=== PATIENT | female | born 1975 | race Caucasian/White ===

== ENCOUNTER 2017-12-12 10:51 | Outpatient (CLI) | payer OTHER | END 2017-12-12 10:52 | disposition home or self-care (01) | LOC: BICMAMMO 10:51 | PROVIDERS: ATTEND Orthopaedic Surgery | DX: Z12.31 Encounter for screening mammogram for malignant neoplasm of breast (principal); Z80.3 Family history of malignant neoplasm of breast | CPT/HCPCS: 77067 ==

== ENCOUNTER 2018-06-05 16:30 | Inpatient (IN) | payer OTHER ==
[2018-06-05 17:22] VITALS: BMI 33.4
[2018-06-08] MEDS ORDERED: Gabapentin 300 MG CAP ONE (06:52)
[2018-06-08] MEDS ORDERED: CeleCOXIB 100 MG CAP ONE (06:52)
[2018-06-08] MEDS ORDERED: Famotidine/PF 20 mg/2ml Vial ONE (06:53)
[2018-06-08] MEDS ORDERED: CEFAZOLIN/Water 2 GM/20 ML SYRINGE ONE (06:53)
[2018-06-08] MEDS ORDERED: Bupivacaine HCl 0.5%/Epinephrine 1:200,000/PF 30 ml Vial ONE (06:56)
[2018-06-08] MEDS ORDERED: Lidocaine 1% w/Epinephrine 1:100K 30 ML VIAL ONE (06:56)
[2018-06-08] MEDS ORDERED: Midazolam HCl 2 mg/2 ml Vial ONE (07:14)
[2018-06-08] MEDS ORDERED: Fentanyl 100 MCG/2 ML VIAL ONE ×2 (07:19→11:50)
[2018-06-08] MEDS ORDERED: SUGAMMADEX SODIUM 200 MG/2 ML VIAL ONE (07:19)
[2018-06-08] MEDS ORDERED: Ropivacaine HCl/PF 750 ML in Premix Bag 1 BAG NERVE BLCK SCH (08:00)
[2018-06-08] MEDS ORDERED: Promethazine HCl 25 MG/ML VIAL SLOW IVP PRN (08:18)
[2018-06-08] MEDS ORDERED: Promethazine HCl 25 MG/ML VIAL IM PRN ×2 (08:18→10:07)
[2018-06-08] MEDS ORDERED: Ondansetron HCl/PF 4 MG/2 ML Vial IVP PRN ×2 (08:18→10:07)
[2018-06-08] MEDS ORDERED: Bisacodyl 10 MG SUPP PR PRN (10:07)
[2018-06-08] MEDS ORDERED: HYDROcodone/Acetaminophen 5/325 mg Tablet PO PRN ×2 (10:07)
[2018-06-08] MEDS ORDERED: Acetaminophen 325 MG TAB PO PRN (10:07)
[2018-06-08] MEDS ORDERED: Lactated Ringer's 1,000 ML IV SCH (10:15)
[2018-06-08] MEDS ORDERED: Morphine 4 MG/ML VIAL SLOW IVP PRN (10:15)
--- NOTE | 2018-06-08 11:14 | OP ---
DATE OF PROCEDURE: 06/08/2018 PREOPERATIVE DIAGNOSES: 1. Chronic pelvic pain. 2. Dysmenorrhea. 3. Concern for adenomyosis. 4. Apical vaginal prolapse with a grade I-II cystocele. POSTOPERATIVE DIAGNOSES: 1. Chronic pelvic pain. 2. Dysmenorrhea. 3. Concern for adenomyosis. 4. Apical vaginal prolapse with a grade I-II cystocele. PROCEDURE: 1. Robotic assisted total laparoscopic hysterectomy. 2. Bilateral salpingectomy. 3. A uterosacral ligament suspension. 4. Cystoscopy. SURGEON Madhavi Aguirre D.O. SENIOR DATA SCIENTIST: Nadine Jiménez M.D. ESTIMATED BLOOD LOSS: 100 mL. IV FLUIDS: 900 mL. URINARY OUTPUT: 400 mL. IV FLUIDS: 1400 mL. FINDINGS: Normal external genitalia, normal vaginal and cervical epithelium. A 9 cm uterus with a g rade I to II apical and anterior prolapse. Evidence of prior tubal ligation with Falope ring found i n the right fallopian tube, normal appearing ovaries with a simple cyst on the right ovary. INDICATIONS FOR THE PROCEDURE: Ms. Bekah Baez is a 43-year-old G4, P4 who presented with clinic wit h history of chronic pelvic pain, dysmenorrhea. The patient had a sonogram which demonstrated possib le adenomyosis. She had undergone medical therapy with oral contraceptives and failed therapy due to worsening migraines. The patient was counseled on options and strongly desired definitive surgical treatment for her dysmenorrhea, understanding that it may not alleviate all of her chronic pelvic dorina n. The patient also had symptomatic cystocele and apical prolapse and preferred to have a suspension procedure as well at the time of hysterectomy. PROCEDURE IN DETAIL: The patient was brought to the operating room and she was placed under general anesthesia. The patient was placed in dorsal lithotomy position using Jayden stirrups. She was appro priately positioned with her arms tucked for robotic surgery. She was prepped and draped in a steril e fashion. She was given Ancef 2 grams for preoperative prophylaxis. An official timeout was perfor med. Speculum was placed in the vagina. The cervix was grasped using single tooth tenaculum. Cervi x was sequentially dilated and sounded to approximately 9 cm. CASSIA manipulator cup was appropriately secured to the ectocervix and everything else was removed from the vagina. Gloves were exchanged. Attention was turned to the abdominal portion. A supraumbilical incision was made using the scalpel. The Veress needle was inserted into the abdominal cavity noting a normal pressure and the abdomen w as insufflated using carbon dioxide. A 12 mm trocar was then placed at this point and the pelvis was evaluated, noting the findings above. The patient was placed in Trendelenburg position. Additional economist research assistant ports were placed with two robotic 8 mm ports on the right and left aspect of the abdomen and an additional 11 mm port on the right aspect, all were placed using local anesthesia under direct visualization. The robot was appropriately docked to the patient. Instruments were inserted. Hyst erotomy was performed on the left aspect where the left fallopian tube was removed using sharp dissec tion. This was removed intact. The left round ligament was then coagulated multiple times and trans ected. The left uteroovarian ligament was coagulated multiple times and transected. This allowed en trance into the broad ligament. The posterior leaf of the broad ligament was undermined and transect ed down towards the level of uterosacral ligaments and the same was performed anteriorly to allow for inferior reflection of the bladder. At the beginning of the case, prior to starting hysterectomy th e uterosacral ligaments were identified and a releasing incision was made on the lateral aspect of th e uterosacral ligament to allow for the ureter to fall even more laterally and the ureters were ident ified throughout their full course. The left uterine vessels were then coagulated multiple times. A ttention was turned to the right aspect of the uterus. The right fallopian tube was removed using sh fabiola dissection noting a Falope ring within the right fallopian tube. The right round ligament was co agulated multiple times and transected. Anterior leaf of the broad ligament was undermined and trans ected allowing for inferior flexion of the bladder. The right uteroovarian ligament was coagulated m ultiple times and transected. The posterior aspect of the right broad ligament was then undermined a nd transected down to the level of the uterosacral ligaments. The right uterine vessels were coagula rachel multiple times and did require additional coagulation due to bleeding initially. The hemostasis was then achieved. The right uterine vessels were transected. The colpotomy was performed in a circ umferential fashion removing the cervix from the vaginal epithelium and the uterus and cervix were de livered in the vagina and all portions of the CASSIA manipulator were also removed. The pelvis was irr igated and cleared of all clot and debris. There were some areas along the vaginal cuff that require d additional cautery on the posterior aspect. The cuff was then closed in a running fashion using 0 Stratafix suture. The needle was then removed. The uterosacral ligament suspension was then perform ed bilaterally using Ethibond suture. The more proximal portion of the uterosacral ligament was then elevated and an Ethibond suture was applied at this portion. The distal portion was then taken with in the suture approximately 1 cm from the vaginal cuff. The suture was then passed from the posterio r to anterior aspect of the vaginal cuff and then again posteriorly to anteriorly and this suture was secured. This was performed bilaterally again noting the full course of the ureter during this proc ess. The pelvis was then again irrigated and cleared of all clot and debris. The ON-Q pump was then placed within the abdomen and secured. The instruments were then removed. The robot was undocked f rom the patient. The abdomen was deflated. The trocars were removed. The 12 mm site was closed, cl osing the deep tissue of the site and the skin incision was closed using 4-0 Monocryl and Dermabond. Attention was turned to the vaginal portion, the cystocele and apical prolapse were well reduced usi ng the technique of the uterosacral ligament suspension. Therefore, she no longer required an anteri or repair. The Andersen was removed and a cystoscopy was performed noting a normal bladder mucosa and b ilateral ureteral efflux. The Andersen was then replaced. The patient was then placed back in supine p osition. She was extubated without difficulty. All counts were correct x2. There were no complicat ions. The patient transferred to PACU in hemodynamically stable condition.
[2018-06-08] MEDS ORDERED: Dexamethasone 20 MG/5 ML VIAL ONE (12:28)
[2018-06-08] MEDS ORDERED: PROPOFOL 200 MG/20 ML VIAL ONE (12:28)
[2018-06-08] MEDS ORDERED: Ondansetron HCl/PF 4 MG/2 ML Vial ONE (12:28)
[2018-06-08] MEDS ORDERED: Glycopyrrolate 0.2 MG/ML 5 ML SYRINGE ONE (12:28)
[2018-06-08] MEDS: Ibuprofen 800 MG TAB PO SCH ×2 (13:33→21:30)
[2018-06-08] MEDS ORDERED: Morphine 10 MG/ML VIAL SLOW IVP PRN (15:30)
[2018-06-08] MEDS ORDERED: Nortriptyline HCl 25 MG CAP PO SCH (21:00)
[2018-06-09 06:03] LABS: #Lymphocytes 1.2 thou/uL (1.20-3.40); #Monocytes 0.9 thou/uL (0.11-0.59); #Neutrophils 10.3 thou/uL (1.40-6.50); %Basophils 0.3 % (0.0-1.0); %Eosinophils 0.3 % (0.0-10.0); %Lymphocytes 9.8 % (21.0-51.0); %Monocytes 7.1 % (0.0-10.0); %Neutrophils 82.6 % (42.0-75.0); Hemoglobin 11.9 g/dL (12.0-16.0); Mean Corpuscular HGB CONC 33.2 g/dL (32.0-36.0); Mean Corpuscular Hemoglobin 31.2 pg (27.0-31.0); Mean Corpuscular Volume 93.8 fL (78.0-98.0); Mean Platelet Volume 6.9 fL (7.4-10.4); Platelet Count 235 thou/uL (130-400); Red Blood Cell (RBC) Count 3.82 mill/uL (4.20-5.40); White Blood Cell (WBC) Count 12.4 thou/uL (4.8-10.8)
[2018-06-09] MEDS: Ibuprofen 800 MG TAB PO SCH (06:10)
[2018-06-09 06:16] LABS: Anion Gap 10 mmol/L (10-20); BUN (Urea Nitrogen) 6 mg/dL (7.0-18.7); Calc. Creatinine Clearance 145 mL/min (70-130); Calcium 8.7 mg/dL (7.8-10.44); Carbon Dioxide 25 mmol/L (22-29); Chloride 108 mmol/L (98-107); Estimated GFR-MDRD 85; Glucose 107 mg/dL (70-105); Potassium 3.6 mmol/L (3.5-5.1); Sodium 139 mmol/L (136-145)
[2018-06-09 08:43] VITALS: BP 117/67; TEMP 99.1
[2018-06-09] MEDS ORDERED: Milk Of Magnesia 30 ML UDCUP PO SCH (09:00)
--- NOTE | 2018-06-09 10:24 | PRG ---
DATE OF SERVICE: 06/09/2018 HPI: Postoperative day #1, status post robotic assisted total laparoscopic hysterectomy with a bilateral salpingectomy and uterosacral ligament suspension and cystoscopy. SUBJECTIVE: The patient reports mild pain controlled with ON-Q pain pump and oral medications. Denies any vaginal bleeding. She was voiding and ambulating without difficulty. She has not yet passed flatus. Denies any nausea, vomiting , fevers or chills. OBJECTIVE: VITAL SIGNS: Stable. CARDIOVASCULAR: Regular rate and rhythm. RESPIRATORY: Unlabored breathing. ABDOMEN: Soft, mild distention. Incisions clean, dry, and intact. Quiet bowel sounds in all 4 quadrants. ON-Q pump appropriately secured, and mild tenderness to palpation, as expected postoperatively. EXTREMITIES: No edema. Negative Homans'. LABORATORY: Stable with slight anemia as expected postoperatively. ASSESSMENT: Postoperative day #1, status post robotic assisted total laparoscopic hysterectomy with bilateral salpingectomy, uterosacral ligament suspension and cystoscopy. PLAN: The patient is meeting all requirements for discharge home. We will plan for followup in 2 weeks with p.r.n. pain medication. SUZI
--- NOTE | 2018-06-09 13:50 | DIS ---
DATE OF ADMISSION: 06/08/2018 DATE OF DISCHARGE: 06/09/2018 ADMISSION DIAGNOSIS: Postoperative pain control status post robotic assisted total laparoscopic hysterectomy with bilateral salpingectomy, uterosacral ligament suspension and cystoscopy. DISCHARGE DIAGNOSES: Postoperative pain control status post robotic assisted total laparoscopic hysterectomy with bilateral salpingectomy, uterosacral ligament suspension and cystoscopy. ADMISSION AND DISCHARGE PHYSICIAN: Madhavi Aguirre D.O. BRIEF HOSPITAL COURSE: Ms. Baez is a 43-year-old female status post robotic assisted total laparoscopic hysterectomy with bilateral salpingectomy, uterosacral ligament suspension and cystoscopy, postoperative day #1. Intraoperative course was benign. Postoperative course has also been benign. The patient is meeting all requirements for discharge. She was voiding, ambulating, tolerating oral intake and her pain is controlled with oral medications. Her vitals and labs are stable. FOLLOWUP: Follow up in 2 weeks. MEDICATIONS: 1. [place] 5/325 one tablet every 6 hours p.r.n. pain, #30, 0 refills. 2. Motrin 800 mg 1 tablet every 8 hours p.r.n. pain, #60, 3 refills. DRAINS: ON-Q pain pump instructions reviewed with the patient. ACTIVITY RESTRICTIONS: Pelvic rest, no heavy lifting, pushing or pulling x6 weeks. MTDD
== END 2018-06-09 11:04 | disposition home or self-care (01) | DRG 743 ==
LOC: SURG A 06-08 06:05 → 3SE 06-08 11:31
PROVIDERS: ADMIT Obstetrics & Gynecology; ATTEND Obstetrics & Gynecology
PROC: 0UT9FZZ Resection of Uterus, Via Natural or Artificial Opening With Percutaneous Endoscopic Assistance (ICD-10-PCS; principal; 2018-06-08)
PROC: 0UT7FZZ Resection of Bilateral Fallopian Tubes, Via Natural or Artificial Opening With Percutaneous Endoscopic Assistance (ICD-10-PCS; 2018-06-08)
PROC: 8E0W4CZ Robotic Assisted Procedure of Trunk Region, Percutaneous Endoscopic Approach (ICD-10-PCS; 2018-06-08)
PROC: 0TJB8ZZ Inspection of Bladder, Via Natural or Artificial Opening Endoscopic (ICD-10-PCS; 2018-06-08)
DX: N94.6 Dysmenorrhea, unspecified (principal); R10.2 Pelvic and perineal pain; N81.10 Cystocele, unspecified; N81.2 Incomplete uterovaginal prolapse
CPT/HCPCS: 36415; 80048; 85025; 88307; 96374; J0131; J0670; J1100; J2001; J2250; J2270; J2405; J2704; J2795; J3010; S0028

== ENCOUNTER 2018-06-05 16:39 | Outpatient (CLI) | payer OTHER ==
[2018-06-05 17:05] LABS: Hemoglobin 13.5 g/dL (12.0-16.0); Mean Corpuscular HGB CONC 33.4 g/dL (32.0-36.0); Mean Corpuscular Hemoglobin 31.3 pg (27.0-31.0); Mean Platelet Volume 7.1 fL (7.4-10.4); Platelet Count 276 thou/uL (130-400); Red Blood Cell (RBC) Count 4.31 mill/uL (4.20-5.40); White Blood Cell (WBC) Count 8.4 thou/uL (4.8-10.8)
[2018-06-05 17:09] LABS: BHCG - Serum Negative (NEGATIVE); Pregs Control Background? CLEAR/WHITE (CLR/WHITE); Pregs Control Bar Appear? YES (CONTROL BAR)
[2018-06-05 17:22] LABS: Anion Gap 12 mmol/L (10-20); BUN (Urea Nitrogen) 10 mg/dL (7.0-18.7); Calc. Creatinine Clearance 0 mL/min (70-130); Calcium 9.4 mg/dL (7.8-10.44); Carbon Dioxide 26 mmol/L (22-29); Chloride 104 mmol/L (98-107); Estimated GFR-MDRD 72; Glucose 114 mg/dL (70-105); Potassium 3.6 mmol/L (3.5-5.1); Sodium 138 mmol/L (136-145)
== END 2018-06-05 16:40 | disposition home or self-care (01) ==
LOC: LABBT 16:39
PROVIDERS: ATTEND Obstetrics & Gynecology
DX: Z01.812 Encounter for preprocedural laboratory examination (principal); R10.2 Pelvic and perineal pain; N94.6 Dysmenorrhea, unspecified; N81.10 Cystocele, unspecified
CPT/HCPCS: 80048; 84703; 85027; 86850; 86900; 86901

== ENCOUNTER 2019-11-10 14:50 | Outpatient (CLI) | payer OTHER ==
--- NOTE | 2019-11-10 15:56 | MMO ---
Bilateral MAMMO Bilat Screen [facility]. CLINICAL HISTORY: Patient is 44 years old and is seen for screening. The patient has the following family history of breast cancer: paternal grandmother, at age 59. The patient has no personal history of cancer. VIEWS: The views performed were: bilateral craniocaudal with tomosynthesis and bilateral mediolateral oblique with tomosynthesis. FILMS COMPARED: The present examination has been compared to a prior imaging study performed at [facility] on 12/12/2017. This study has been interpreted with the assistance of computer-aided detection. MAMMOGRAM FINDINGS: The breasts are heterogeneously dense, which could obscure a lesion on mammography. Benign calcifications are noted bilaterally. There are no suspicious masses, suspicious calcifications, or new areas of architectural distortion. IMPRESSION: THERE IS NO MAMMOGRAPHIC EVIDENCE OF MALIGNANCY. A ROUTINE FOLLOW-UP MAMMOGRAM IN 1 YEAR IS RECOMMENDED. THE RESULTS OF THIS EXAM WERE SENT TO THE PATIENT. ACR BI-RADS Category 2 - Benign finding MAMMOGRAPHY NOTE: 1. A negative mammogram report should not delay a biopsy if a dominant of clinically suspicious mass is present. 2. Approximately 10% to 15% of breast cancers are not detected by mammography. 3. Adenosis and dense breasts may obscure an underlying neoplasm. Reported by: MELITA REECE MD Electonically Signed: [id number]
== END 2019-11-10 14:51 | disposition home or self-care (01) ==
LOC: BICMAMMO 14:50
PROVIDERS: ATTEND Family Medicine
DX: Z12.31 Encounter for screening mammogram for malignant neoplasm of breast (principal); Z80.3 Family history of malignant neoplasm of breast
CPT/HCPCS: 77063; 77067

== ENCOUNTER 2021-01-05 12:12 | Outpatient (CLI) | payer OTHER | END 2021-01-05 12:13 | disposition home or self-care (01) | LOC: BICMAMMO 12:12 | PROVIDERS: ATTEND Family Medicine | DX: Z12.31 Encounter for screening mammogram for malignant neoplasm of breast (principal); Z80.3 Family history of malignant neoplasm of breast | CPT/HCPCS: 77063; 77067 ==

== ENCOUNTER 2021-05-10 15:15 | Outpatient (CLI) | payer OTHER | END 2021-05-10 15:16 | disposition home or self-care (01) | LOC: BICCT 15:15 | PROVIDERS: ATTEND Student in an Organized Health Care Education/Training Program | DX: R10.2 Pelvic and perineal pain (principal); N83.201 Unspecified ovarian cyst, right side; Z90.710 Acquired absence of both cervix and uterus | CPT/HCPCS: 74177 ==

== ENCOUNTER 2022-01-07 10:51 | Outpatient (CLI) | payer OTHER | END 2022-01-07 10:52 | disposition home or self-care (01) | LOC: BICMAMMO 10:51 | PROVIDERS: ATTEND Family Medicine | DX: Z12.31 Encounter for screening mammogram for malignant neoplasm of breast (principal); Z80.3 Family history of malignant neoplasm of breast | CPT/HCPCS: 77063; 77067 ==

== ENCOUNTER 2023-06-20 11:16 | Outpatient (CLI) | payer OTHER | END 2023-06-20 11:17 | disposition home or self-care (01) | LOC: BICMAMMO 11:16 | PROVIDERS: ATTEND Family Medicine | DX: Z12.31 Encounter for screening mammogram for malignant neoplasm of breast (principal); N64.89 Other specified disorders of breast; Z80.3 Family history of malignant neoplasm of breast | CPT/HCPCS: 77063; 77067 ==

== ENCOUNTER 2023-07-01 09:48 | Outpatient (CLI) | payer OTHER | END 2023-07-01 09:49 | disposition home or self-care (01) | LOC: BICMAMMO 09:48 | PROVIDERS: ATTEND Family Medicine | DX: N64.89 Other specified disorders of breast (principal) | CPT/HCPCS: G0279 ==